=== PATIENT | female | born 1965 | race Caucasian/White ===

== ENCOUNTER 2016-12-27 06:24 | Day surgery (SDC) | payer BC, OTHER ==
[2016-12-26 19:22] VITALS: BMI 27.8
[2016-12-27] MEDS ORDERED: BACITRACIN 15 GM TUBE TOPICAL OINTMENT ONE (07:22)
[2016-12-27] MEDS ORDERED: LIDOCAINE 1%-EPI 1:100,000 30 ML MDV IJ ONE (07:23)
[2016-12-27] MEDS ORDERED: MIDAZOLAM HCL 2 MG/2 ML SINGLE DOSE VIAL ONE (07:39)
[2016-12-27] MEDS ORDERED: PROPOFOL 20 ML ONE ×6 (07:39→15:19)
[2016-12-27] MEDS ORDERED: LIDOCAINE HCL/PF 2% SDV 5ML VIAL ONE (07:39)
[2016-12-27] MEDS ORDERED: ROCURONIUM BROMIDE 50 MG/5 ML VIAL ONE (07:39)
[2016-12-27] MEDS ORDERED: PROMETHAZINE HCL 25 MG/1 ML VIAL IVPUSH PRN (11:10)
[2016-12-27] MEDS ORDERED: ONDANSETRON 4 MG/2 ML VIAL IVPUSH PRN (11:10)
[2016-12-27] MEDS ORDERED: LACTATED RINGERS SOLUTION 1,000 ML IV SCH ×2 (11:15→16:00)
[2016-12-27] MEDS ORDERED: ePHEDrine SULFATE 50 MG/1 ML AMPULE ONE (11:25)
[2016-12-27] MEDS ORDERED: MINERAL OIL/PETROLATUM,WHITE 3.5 GM TUBE ONE (12:40)
[2016-12-27] MEDS ORDERED: BACITRACIN 3.5 GM OPTHALMIC OINT TUBE ONE (13:57)
[2016-12-27] MEDS ORDERED: BACITRACIN/POLYMYXIN OPH OINT 3.5 GM TUBE ONE (13:57)
[2016-12-27] MEDS ORDERED: BSS (NA/CA/MG/K) BALANCED SALT SOLUTION OPHTH SOLN 15 ML BOTTLE ONE (14:20)
[2016-12-27] MEDS ORDERED: ONDANSETRON 4 MG/2 ML VIAL IVPB PRN (15:57)
[2016-12-27] MEDS ORDERED: morphine CARPU-JECT 10 MG/1 ML DISP.SYRIN IVPUSH PRN (15:57)
[2016-12-27] MEDS ORDERED: ceFAZolin SODIUM 1 GM VIAL ONE (17:05)
[2016-12-27] MEDS ORDERED: LORAZEPAM CARPU-JECT 2 MG/ML DISP.SYRIN IVPB PRN (20:41)
[2016-12-27] MEDS ORDERED: LORAZEPAM CARPU-JECT 2 MG/ML DISP.SYRIN IVPUSH PRN (20:49)
[2016-12-27] MEDS: CEFAZOLIN 1 GM/D5W 50 ML IVPB SCH (21:00)
[2016-12-27] MEDS: oxyCODONE HCL 5 MG TABLET PO PRN (21:01)
[2016-12-28] MEDS: CEFAZOLIN 1 GM/D5W 50 ML IVPB SCH ×3 (03:37→09:33)
[2016-12-28 04:02] VITALS: BP 124/57; PULSE 89; TEMP 98.5
[2016-12-28] MEDS: oxyCODONE HCL 5 MG TABLET PO PRN ×2 (05:17→09:33)
--- NOTE | 2016-12-28 09:55 | PN ---
Progress Note (short form) - Note Progress Note: POD1 s/p lower facelift with bilateral lower eyelid blepharoplasty. No diplopia , no eyelid malposition, no epiphora, no FB sensation or pain. All branches of the facial nerve intact and functioning, no collections or bleed. All tissues viable. VSS AF. Anxiety overnight. Dressings changed and ok for discharge.
--- NOTE | 2016-12-28 10:41 | OP ---
DATE OF OPERATION: 12/27/2016 PROCEDURE: Lower face lift with bilateral lower eyelid blepharoplasty. PREOPERATIVE DIAGNOSIS: Facial aging, lower eyelid aging. POSTOPERATIVE DIAGNOSIS: Facial aging, lower eyelid aging. ANESTHESIA: General endotracheal anesthesia. DESCRIPTION OF PROCEDURE: The patient is marked in the holding area. She was counseled on all risks, benefits, and alternatives of the procedure. She was also counseled on the limitations of the procedure. She is marked with the planned incisions and understands the resulting scars. The patient was brought to the operating room. She was carefully padding by surgical and anesthesia teams using all positioning aids and padding. Moreland catheter is placed, which was removed at the end of the procedure. A gram of Ancef is given preoperatively. She is draped and prepped in standard surgical fashion after which a time-out was called. The patient, procedure, sites, sides are verified. Sequential compression stockings and Nick hose had been applied. The endotracheal tube is secured to the upper incisors with 2-0 silk suture. The local anesthetic used on the face is 0.25% lidocaine with 1:400,000 epinephrine. There is 40 mL used in each the submental area, the left side of the face and the right side of the face. This is injected sequentially over the duration of the 6-hour operation prior to dissecting in these areas. The neck was injected prior to prepping and draping for adequate time for hemostatic effect prior to beginning the dissection using a 2-mm spatulated cannula. Neck liposuction is performed after initial pretunneling. Once the desired effect of the liposuction is achieved, a submental incision was made, and a subcutaneous dissection is performed using face lift technique. The platysmal muscles are identified, and a midline platysmal plication is performed with a running 4-0 Prolene suture with several locking elements. This is double layered with knots buried. After completion of this, the submental area is inspected and assured for hemostasis, and attention is then directed toward the left side of the face. Incisions were made preauricularly. Sideburn cut is made. Postauricular incision was made and carried into the posterior hairline. Through this, a subcutaneous dissection is performed using face lift technique and is ultimately connected into the submental dissection. At this point, a SMAS flap is marked a fingerbreadth inferior to the palpable zygomatic arch. There is a transverse and vertical component. The vertical component is just preauricular. A SMAS flap is then elevated atraumatically under direct vision until the flap is elevated into the mobile component of this SMAS. This was entirely superior to the parotid fascia without putting the facial nerves at risk. The flap is transposed superolaterally giving the appropriate correction of the gel. Excess SMAS is excised superolaterally, and a 2-cm lateral SMAS component of the flap is then transposed postauricularly. The flap is inset into the defect and postauricularly with a 4-0 PDS suture. Hemostasis is meticulously achieved, and attention is then directed to the contralateral right side where the mirror image procedure is performed. Prior to closing any of the facial incisions, the eyelids are addressed. The lateral table mountain's foot extension is marked. The left eyelid is addressed first with an injection of 3 mL of 1% lidocaine with 1:100,000 epinephrine after which awaiting adequate time for hemostatic effect a table mountain's foot incision is made. A lower lid margin traction suture is applied with a 4-0 nylon. Subciliary incision was made. A skin flap is then elevated for 1.5 cm leaving the entirety of pretarsal orbicularis in place as well as a cm of preseptal orbicularis in place. At this point, dissection is then continued through the orbicularis muscle transitioning into a skin muscle flap to the level of the orbital rim. The septum is identified. Small amounts of fat are then removed from each of the nasal, central, and lateral compartments through the septum. Hemostasis is achieved then attention is directed toward the contralateral right side where a mirror image procedure is performed. Hemostasis is assured. Irrigation is performed. The closure is then performed 1st on the left and then on the right. The skin is transposed. Excess skin is excised laterally. The table mountain's foot incision is closed with a series of interrupted 6-0 Prolene suture. The subciliary incision is closed with a running 6-0 fast-absorbing plain gut suture with minimal skin excision in the subciliary portion and no tension on the closure. Mirror image closure is positive for on the contralateral right side. The facial incisions are once again inspected for hemostasis. They are irrigated. Closure is then performed with a 0.5-inch Tiffanie drain brought out through the posterior extent of the postauricular incision. The skin is positioned without tension, and excess skin is trimmed. The tension bearing points are repaired with 4-0 Monocryl buried deep dermal suture at the posterior apex of the postauricular incision as well as at the root of the helix. The remainder of skin preauricularly is closed with a running 6-0 nylon suture, postauricularly with a 5-0 chromic gut suture, and in the posterior hairline with a series of interrupted skin paula. The hairline is carefully realigned leaving a gap within the hair for removal of the drain. This closure is performed on the same way on the contralateral side. The submental incision is then closed with a single layer of running 6-0 Prolene suture. All skin appears viable. Dressed with bacitracin and Xeroform. A Caceres-style facial dressing. The patient is awoken from anesthesia demonstrating good function of all branches of the facial nerve and transferred to recovery without complication. Erica [id number]
== END 2016-12-28 10:30 | disposition home or self-care (01) ==
LOC: FASU 06:24 → FM/S 15:57 → FASU 12-28 10:30
PROVIDERS: ATTEND Plastic Surgery
PROC: 0W020ZZ Alteration of Face, Open Approach (ICD-10-PCS; principal; 2016-12-27 09:37)
PROC: 0W020ZZ Alteration of Face, Open Approach (ICD-10-PCS; 2016-12-27 09:37)
DX: Z41.1 Encounter for cosmetic surgery (principal); R23.4 Changes in skin texture; L98.8 Other specified disorders of the skin and subcutaneous tissue
CPT/HCPCS: 84703; 94760